=== PATIENT | female | born 1985 | race Caucasian/White ===

== ENCOUNTER 2016-12-12 10:20 | Day surgery (SDC) | payer OTHER ==
[2016-12-08 13:18] VITALS: BMI 25.4
[2016-12-12] MEDS ORDERED: Lactated Ringer's 1,000 ML IV ONE ×3 (10:42)
[2016-12-12] MEDS: Bupivacaine-Epi 0.25%-1:200,000 PF Inj ONE ×2 (11:28→11:48)
[2016-12-12] MEDS: Lidocaine 1% Inj (20ml) ONE ×2 (11:28→11:48)
[2016-12-12] MEDS: ceFAZolin IV 2 gm in Dextrose 1 GM/50 ML BAG IVPB ONE ×2 (11:29→11:40)
[2016-12-12] MEDS ORDERED: Sodium Chloride 0.9% 100 ML IV ONE (11:40)
[2016-12-12] MEDS ORDERED: Midazolam 2 MG/2 ML VIAL ONE (11:51)
[2016-12-12] MEDS ORDERED: Propofol 10 mg/ml Inj (20 ML) ONE ×2 (11:51→12:01)
[2016-12-12] MEDS ORDERED: Oxycodone/Acetaminophen 5/325 mg Tab PO PRN (12:49)
--- NOTE | 2016-12-12 12:49 | PCM.SURG1 ---
Surgeon's Initial Post Op Note - Surgeon's Notes Surgeon: MD [employer] Chief: YOLA RamY1 Pre-Operative Diagnosis: Sebaceous cyst of upper back Operative Findings: sebaceous cyst Post-Operative Diagnosis: sebaceous cyst of upper back Operation Performed: removal of sebaceous cyst of upper back Specimen/Specimens Removed: sebaceous cyst of upper back Estimated Blood Loss: EBL {In ML}: 5 Date of Surgery/Procedure: 12/12/16 Time of Surgery/Procedure: 12:00
[2016-12-12 13:42] VITALS: PULSE 56
[2016-12-12 14:52] VITALS: O2SAT 97
[2016-12-12 14:56] VITALS: BP 100/62; RESP 14; TEMP 97.4
--- NOTE | 2016-12-15 04:47 | OP ---
PROCEDURE DATE: 12/12/2016 PREOPERATIVE DIAGNOSIS: Recurrent sebaceous cyst of the mid upper back. POSTOPERATIVE DIAGNOSIS: Recurrent sebaceous cyst of the mid upper back. PROCEDURE: 1. Excision of the sebaceous cyst of upper back approximately 5 x 4 cm size. 2. Revision of the scar 4 x 2 cm size. 3. Layered closure of the wound complex 4 x 4 cm size. SURGEON: Dr. Mobley. INSTRUCTOR FLYING: Enoc Solano, PGY2 resident. TYPE OF ANESTHESIA: Local anesthesia plus sedation. ESTIMATED BLOOD LOSS: Around 10 mL. DRAIN: None. PATHOLOGY: 1. Sebaceous was sent for the pathology. 2. Revised scar was also sent to the Pathology. COMPLICATIONS: None. INTRAOPERATIVE FINDINGS: The patient had a large recurrent sebaceous cyst of 5 x 4 cm size in the mid upper back with previous scar. DESCRIPTION OF PROCEDURE: On intraoperative steps, this 31-year-old female who was diagnosed with sebaceous cyst of the upper back and the patient was consented for the excision, brought to the OR, placed in the right lateral position. After induction of the anesthesia, the local anesthesia was injected. The elliptical incision was made of approximately 4 x 2 cm size and upper and lower flap was created and the scar was sent for the pathology and sebaceous was completely excised from the underlying subcutaneous as well as up to underlying fascia in the muscles and the third cyst was excised with intact capsule and the cavity was irrigated. Hemostasis was achieved. Now, the wound appear to be approximately 4 x 4 cm size and complex closure of the lower flap was done and it was sutured to the underlying fascia. The subcutaneous was sutured with the underlying fascia. Another layer of subcutaneous was sutured with a 2-0 Vicryl, skin with a 4-0 Monocryl and another layer of the skin with a 5-0 nylon and dry sterile dressing was applied. The patient tolerated the procedure well. Count of the instruments was correct. There was no apparent complication. Marcell Mobley MD [facility]
== END 2016-12-12 14:35 | disposition home or self-care (01) ==
LOC: C.SDS 10:20
PROVIDERS: ATTEND Surgery Surgical Critical Care
DX: L72.3 Sebaceous cyst (principal)
CPT/HCPCS: 11406; 12032; 88305; J0690; J1885; J2250; J2704; J3010; J7040; J7120